=== PATIENT | female | born 1985 | race Caucasian/White ===

== ENCOUNTER 2018-03-04 19:19 | Emergency (ER) | payer BC, OTHER ==
[~2018-03-04] VITALS: Ht 167.6 cm; Wt 68.3 kg
[~2018-03-04 19:19] MED LIST: PRENTAB72 PO
[2018-03-04 19:35] VITALS: BP 123/74; PULSE 93; RESP 16; TEMP 98.5; O2SAT 99
[2018-03-04] MEDS ORDERED: LORA1CHW2 CHEW (21:20)
[2018-03-04] MEDS ORDERED: BENA25CA4 PO (21:20)
--- NOTE | 2018-03-04 21:29 | PD ---
HPI Chief Complaint: Floor Finisher Problem/Complaint Time Seen by Provider: 21:03 Travel History International Travel<30 days: No Contact w/Intl Traveler<30days: No Traveled to known affect area: No History of Present Illness HPI This is a 32-year-old female who presents to the emergency department with vaginal bleeding that started this morning, constant, moderate severity associated with some clots earlier today. She says now she is bleeding and changing a pad every 2-3 hours. The bleeding has slowed. She is having a lot of abdominal cramping in the lower abdomen which is stronger and worse than a menstrual cycle. She denies any lightheadedness or dizziness and denies any fevers or chills. She had a positive test about 7 weeks ago. She says she has had one miscarriage in the past and 2 medical abortions. PFSH Past Medical History Anxiety: Yes Depression: Yes Diminished Hearing: No Immunizations Current: Yes Tetanus Vaccination: > 5 Years Influenza Vaccination: No ?: LMP: 12/20/17 : 6 Miscarriage: 2 : 4 Past Surgical History Tonsillectomy: Yes Social History Alcohol Use: No Tobacco Use: Yes (4-5 cigarettes per day ) Substance Use: No Allergies-Medications (Allergen,Severity, Reaction): Coded Allergies: No Known Allergies (Unverified Adverse Reaction, Unknown, 03/04/18) Reported Meds & Prescriptions Reported Meds & Active Scripts Active ( Vit W/ Ferrous Fumara) Tab 1 Tab PO DAILY Reported Claritin (Loratadine) 5 Mg Chew 5 Mg CHEW DAILY Benadryl Allergy (Diphenhydramine HCl) 25 Mg Cap 2 Cap PO DAILY PRN Review of Systems Except as stated in HPI: all other systems reviewed are Neg Physical Exam Narrative GENERAL:Well appearing, no acute distress SKIN: Focused skin assessment warm and dry. HEAD: Atraumatic. Normocephalic. EYES: Pupils equal and round. No injection or drainage. ENT: Moist mucous membranes NECK: Trachea midline. CARDIOVASCULAR: Regular rate and rhythm. No murmur appreciated. RESPIRATORY: Clear to auscultation. Breath sounds equal bilaterally. GASTROINTESTINAL: Abdomen soft, non-tender, nondistended. BASTER HAND: Dark blood from the os, cervix is closed MUSCULOSKELETAL: No obvious deformities. NEUROLOGICAL: Awake and alert. No obvious cranial nerve deficits. Moving all extremities. PSYCHIATRIC: Appropriate mood and affect; insight and judgment normal. Data Data Last Documented VS Vital Signs Date Time Temp Pulse Resp B/P (MAP) Pulse Ox O2 Delivery O2 Flow Rate FiO2 03/04/18 19:35 98.5 93 16 123/74 (90) 99 Orders Orders Complete Blood Count With Diff (03/04/18 21:26) Comprehensive Metabolic Panel (03/04/18 21:26) Type And Screen (03/04/18 21:26) Beta Hcg (Quant/Titer) (03/04/18 21:26) Us Pelvis (Ques Preg/Ectopic) (03/04/18 ) Acetaminophen (Tylenol) (03/04/18 23:30) Labs Laboratory Tests Test 03/04/18 21:35 White Blood Count 7.9 TH/MM3 Red Blood Count 4.73 MIL/MM3 Hemoglobin 15.1 GM/DL Hematocrit 44.1 % Mean Corpuscular Volume 93.3 FL Mean Corpuscular Hemoglobin 31.9 PG Mean Corpuscular Hemoglobin Concent 34.1 % Red Cell Distribution Width 13.1 % Platelet Count 220 TH/MM3 Mean Platelet Volume 8.1 FL Neutrophils (%) (Auto) 54.6 % Lymphocytes (%) (Auto) 34.6 % Monocytes (%) (Auto) 5.8 % Eosinophils (%) (Auto) 4.1 % Basophils (%) (Auto) 0.9 % Neutrophils # (Auto) 4.3 TH/MM3 Lymphocytes # (Auto) 2.7 TH/MM3 Monocytes # (Auto) 0.5 TH/MM3 Eosinophils # (Auto) 0.3 TH/MM3 Basophils # (Auto) 0.1 TH/MM3 CBC Comment DIFF FINAL Differential Comment Blood Urea Nitrogen 8 MG/DL Creatinine 0.61 MG/DL Random Glucose 88 MG/DL Total Protein 7.8 GM/DL Albumin 3.9 GM/DL Calcium Level 8.7 MG/DL Alkaline Phosphatase 46 U/L Aspartate Amino Transf (AST/SGOT) 13 U/L Alanine Aminotransferase (ALT/SGPT) 18 U/L Total Bilirubin 0.2 MG/DL Sodium Level 138 MEQ/L Potassium Level 3.8 MEQ/L Chloride Level 107 MEQ/L Carbon Dioxide Level 24.7 MEQ/L Anion Gap 6 MEQ/L Estimat Glomerular Filtration Rate 113 ML/MIN Human Chorionic Gonadotropin, Quant 6173 MIU/ML MDM Medical Decision Making Medical Screen Exam Complete: Yes Emergency Medical Condition: Yes Interpretation(s) No leukocytosis HCG is 6173 Differential Diagnosis Threatened miscarriage, incomplete miscarriage, complete miscarriage, ectopic Narrative Course This is a 32-year-old female who presents to the emergency department with vaginal bleeding in the setting of early . She is having a fair amount of lower abdominal discomfort. Pelvic exam demonstrates some dark red blood but not copious bleeding. Beta-hCG is 6100. Patient's blood type is Rh+ . Ultrasound demonstrates nothing in the cul-de-sac and no adnexal masses to suggest ectopic . Given the patient's clinical history it sounds like she has had a complete miscarriage. I did advise her to return to the emergency department in 2 days for a confirmatory repeat beta hCG. Otherwise I think she is stable for outpatient symptomatic management. Diagnosis Primary Impression: Vaginal bleeding Patient Instructions: General Instructions Additional Instructions: If you develop severe abdominal pain, fever, persistent vomiting or inability to eat, heavy vaginal bleeding using more than one pad an hour, lightheadedness , dizziness, chest pain or shortness of breath return to the emergency department immediately. Return to the emergency department in 2 days for repeat hCG blood work. Take Tylenol as needed for pain. Med/Other Pt SpecificInfo: No Change to Meds Disposition: 01 DISCHARGE HOME Condition: Stable Patricia Keys MD March 04, 2018 21:29
[2018-03-04 21:51] LABS: AUTOMATED NEUTROPHIL # 4.3 TH/MM3 (1.8-7.7); BASOPHIL # 0.1 TH/MM3 (0-0.2); BASOPHIL % 0.9 % (0.0-2.0); EOSINOPHIL # 0.3 TH/MM3 (0-0.4); EOSINOPHIL % 4.1 % (0.0-4.0); HEMATOCRIT 44.1 % (35.0-46.0); HEMOGLOBIN 15.1 GM/DL (11.6-15.3); LYMPH % 34.6 % (9.0-44.0); LYMPHOCYTE # 2.7 TH/MM3 (1.0-4.8); MEAN CELL VOLUME 93.3 FL (80.0-100.0); MEAN CORPUSCULAR HEMOGLOBIN 31.9 PG (27.0-34.0); MEAN CORPUSCULAR HGB CONC 34.1 % (32.0-36.0); MEAN PLATELET VOLUME 8.1 FL (7.0-11.0); MONO % 5.8 % (0.0-8.0); MONOCYTE # 0.5 TH/MM3 (0-0.9); NEUT % 54.6 % (16.0-70.0); PLATELET COUNT 220 TH/MM3 (150-450); RED BLOOD COUNT 4.73 MIL/MM3 (4.00-5.30); RED CELL DISTRIBUTION WIDTH 13.1 % (11.6-17.2); WHITE BLOOD COUNT 7.9 TH/MM3 (4.0-11.0)
[2018-03-04 21:56] LABS: CHLORIDE 107 MEQ/L (98-107); SODIUM (NA) 138 MEQ/L (136-145)
[2018-03-04 21:59] LABS: ALBUMIN 3.9 GM/DL (3.4-5.0); BICARBONATE 24.7 MEQ/L (21.0-32.0); CALCIUM 8.7 MG/DL (8.5-10.1); GLUCOSE,RANDOM 88 MG/DL (74-106)
[2018-03-04 22:00] LABS: BLOOD UREA NITROGEN 8 MG/DL (7-18)
[2018-03-04 22:02] LABS: ALT (GPT) 18 U/L (10-53)
[2018-03-04 22:03] LABS: AST (GOT) 13 U/L (15-37); CREATININE 0.61 MG/DL (0.50-1.00); GLOMERULAR FILTRATION RATE 113 ML/MIN (>89)
[2018-03-04 22:04] LABS: TOTAL BILIRUBIN ADULT 0.2 MG/DL (0.2-1.0); TOTAL PROTEIN 7.8 GM/DL (6.4-8.2)
[2018-03-04 22:05] LABS: ALKALINE PHOSPHATASE 46 U/L (45-117)
[2018-03-04] MEDS ORDERED: ACETAMINOPHEN 500 MG CPLT PO ONE (23:30)
[2018-03-04 23:58] VITALS: BP 118/74
--- NOTE | 2018-03-05 00:16 | RADRPT ---
EXAM DATE: 03/04/2018 11:49 PM EDT AGE/SEX: 32 years / Female INDICATIONS: Pelvic bleeding with clots. CLINICAL DATA: This is the patient's initial encounter. Patient reports that signs and symptoms have been present for 1 day and indicates a pain score of 6/10. MEDICAL/SURGICAL HISTORY: . Depression. Anxiety. Tobacco use. Tonsillectomy. COMPARISON: No prior exams available for comparison. No external comparison. MEASUREMENTS: Uterus:__8.6 x 7.2 x 5.1 cm Endometrial Stripe:__10 mm Right Ovary:__ 2.3 x 2.2 x 2.6 cm Left Ovary:__ 2.8 x 2.1 x 1.8 cm FINDINGS: Uterus: The myometrium has homogeneous echotexture without mass. The endometrial stripe is thickene d and inhomogeneous with an area approximately 1.8 x 0.5 cm mixed echogenicity may be a blood clot. T here is no evidence for IUP. Right Ovary: There is a small approximate 1 cm cyst in the right ovary. Left Ovary: Unremarkable. Other: There is slight fluid in the cul-de-sac. CONCLUSION: 1. No evidence for IUP. 2. Inhomogeneous thickened endometrial stripe and possible blood clot within it. 3. Simple cyst in the right ovary and tiny fluid in the cul-de-sac. Electronically signed by: Liliana Krishna MD 03/05/2018 12:15 AM EDT
== END 2018-03-05 00:04 | disposition home or self-care (01) ==
LOC: PHED 19:19
DX: N93.9 Abnormal uterine and vaginal bleeding, unspecified (principal); F41.9 Anxiety disorder, unspecified; F32.9 Major depressive disorder, single episode, unspecified; F17.210 Nicotine dependence, cigarettes, uncomplicated; Z79.899 Other long term (current) drug therapy; Z32.02 Encounter for pregnancy test, result negative
CPT/HCPCS: 76700; 76817; 80053; 84702; 85025; 86850; 86900; 86901; 99284